=== PATIENT | male | born 1965 | race Caucasian/White ===

== ENCOUNTER 2017-08-07 21:19 | Emergency (ER) | payer MEDICARE, MEDICAID ==
[2017-08-07] MEDS ORDERED: Ketorolac 60 MG/2 ML SDV IM ONE (22:12)
--- NOTE | 2017-08-07 22:17 | EDM.PDOC ---
ED HPI GENERAL MEDICAL PROBLEM - General Chief Complaint: Back Pain or Injury Stated Complaint: BACK PAIN/ALLERGIES Time Seen by Provider: 08/07/17 22:08 - History of Present Illness INITIAL COMMENTS - FREE TEXT/NARRATIVE: HISTORY AND PHYSICAL: History of present illness: The patient is a 52-year-old male who presents with 2 issues he like addressed-- - first he is concerned that he might have an allergy to cats and he has been around cats and he feels itchy but he has no facial swelling no trouble swallowing no wheezing and no discrete rash. He did not try any over-the- counter meds. The second issue is that he has chronic back pain and he has been sleeping on a floor as he has recently moved here and when he got up he felt some discomfort in his back which is typical of his back pain and is not new or different. He did not take any mejs-mgm-xyytscr meds for this discomfort and he has no radiation of the pain to his legs he has no bowel or bladder disturbances and he had no direct trauma or falls. He has no local provider and was not sure where to go to have these issues addressed. The patient says that just sitting he doesn't have any back pain but when he tries to stand up he gets the discomfort and once he is up he feels better. Walking does not aggravate the pain. This is all typical of prior episodes of his chronic back pain. Review of systems: As per history of present illness and below otherwise all systems reviewed and negative. Past medical history: As per history of present illness and as reviewed below otherwise noncontributory. Surgical history: As per history of present illness and as reviewed below otherwise noncontributory. Social history: No reported history of drug or alcohol abuse. Family history: As per history of present illness and as reviewed below otherwise noncontributory. Physical exam: Gen.: Well-developed well-nourished man who moves easily in the ED vital signs are reviewed by me HEENT: Atraumatic, normocephalic, pupils reactive, negative for conjunctival pallor or scleral icterus, mucous membranes moist, throat clear, neck supple, nontender, trachea midline. No oropharyngeal swelling or facial swelling Lungs: Clear to auscultation, breath sounds equal bilaterally, chest nontender. Heart: S1S2, regular, rate and rhythm no overt murmurs Abdomen: Soft, nondistended, nontender. NABSNegative for costovertebral tenderness. Pelvis: Stable nontender. Genitourinary: Deferred. Rectal: Deferred. Extremities: Atraumatic, negative for cords or calf pain. Neurovascular unremarkable. Neuro: Awake, alert, oriented. Cranial nerves II through XII unremarkable. Cerebellum unremarkable. Motor and sensory unremarkable throughout. Exam nonfocal. Neck: There are no midline step-offs tenderness defects of the thoracic or lumbar spine and no posterior rib or pelvis pain Skin: There is no evidence of any rash the right seen on the trunk or upper extremities face or neck or back. Turgor is normal Diagnostics: [] Therapeutics: Toradol Discussed with the patient that we do not do allergy testing here and that if he wanted evaluation for that he would need to be seen in the clinic. Advised [id number]-[id number] Benadryl and Claritin for any allergy symptoms. We have given him a shot of Toradol here on a recommend [id number] anti-inflammatories for his chronic back issues and follow-up in our clinic. We discussed that as he has had no new trauma that x-rays would not be indicated Impression: Subjective allergy symptoms stable, chronic back pain stable Definitive disposition and diagnosis as appropriate pending reevaluation and review of above. Left Back Pain Score (Numeric/FACES): 9 - Related Data Allergies Allergy/AdvReac Type Severity Reaction Status Date / Time Penicillins Allergy Cannot Verified 08/07/17 21:32 Remember Home Meds: Home Meds . [No Known Home Meds] 07/27/14 [History] Past Medical History - Past Health History Medical/Surgical History: Denies Medical/Surgical History HEENT History: Reports: None Cardiovascular History: Reports: None Respiratory History: Reports: None Gastrointestinal History: Reports: None Genitourinary History: Reports: None Musculoskeletal History: Reports: None Neurological History: Reports: None Psychiatric History: Reports: None Endocrine/Metabolic History: Reports: None Hematologic History: Reports: None Immunologic History: Reports: None Oncologic (Cancer) History: Reports: None Dermatologic History: Reports: None - Infectious Disease History Infectious Disease History: Reports: None - Past Surgical History Head Surgeries/Procedures: Reports: None Male Surgical History: Reports: None Social & Family History - Tobacco Use Smoking Status *Q: Former Smoker Years of Tobacco use: 35 Used Tobacco, but Quit: Yes Month Tobacco Last Used: 06/12/17 - Caffeine Use Caffeine Use: Reports: None - Alcohol Use Days Per Week of Alcohol Use: 0 - Recreational Drug Use Recreational Drug Use: No ED ROS GENERAL - Review of Systems Review Of Systems: ROS reveals no pertinent complaints other than HPI. ED EXAM, GENERAL - Physical Exam Exam: See Below (See dictation) Course - Vital Signs Last Recorded V/S: Last Vital Signs Temp 37.1 C 08/07/17 21:29 Pulse 68 08/07/17 21:29 Resp 18 08/07/17 21:29 BP 123/53 L 08/07/17 21:29 Pulse Ox 99 08/07/17 21:29 - Orders/Labs/Meds Orders: Active Orders 24 hr Category Date Time Status Ketorolac [Toradol] Med 08/07/17 22:12 Once 60 mg IM ONETIME ONE Departure - Departure Time of Disposition: 22:15 Disposition: Home, Self-Care 01 Condition: Good Clinical Impression: Chronic back pain Qualifiers: Back pain location: back pain in unspecified location Back pain laterality: unspecified Qualified Code(s): M54.9 - Dorsalgia, unspecified; G89.29 - Other chronic pain; G89.29 - Other chronic pain Allergic symptoms Qualifiers: Encounter type: initial encounter Qualified Code(s): T78.40XA - Allergy, unspecified, initial encounter - Discharge Information Referrals: PCP,None [Primary Care Provider] - Additional Instructions: The following information is given to patients seen in the emergency department who are being discharged to home. This information is to outline your options for follow-up care. We provide all patients seen in our emergency department with a follow-up referral. The need for follow-up, as well as the timing and circumstances, are variable depending upon the specifics of your emergency department visit. If you don't have a primary care physician on staff, we will provide you with a referral. We always advise you to contact your personal physician following an emergency department visit to inform them of the circumstance of the visit and for follow-up with them and/or the need for any referrals to a consulting specialist. The emergency department will also refer you to a specialist when appropriate. This referral assures that you have the opportunity for followup care with a specialist. All of these measure are taken in an effort to provide you with optimal care, which includes your followup. Under all circumstances we always encourage you to contact your private physician who remains a resource for coordinating your care. When calling for followup care, please make the office aware that this follow-up is from your recent emergency room visit. If for any reason you are refused follow-up, please contact the [facility] emergency department at and ask to speak to the emergency department charge nurse. [facility] Primary care- Internal Medicine and Family [address] [address] Use [id number] Claritin/Camryn/Benadryl for any allergy symptoms and please call and follow-up in our clinic for further evaluation of your concerns about cat allergies. Use [id number] Tylenol/ibuprofen for back pain and apply ice or heat to areas for symptoms. Please contact one of our clinic providers for further care of this as well. Return to ER as needed and as discussed - My Orders Last 24 Hours: My Active Orders 08/07/17 22:12 Ketorolac [Toradol] 60 mg IM ONETIME ONE - Assessment/Plan Last 24 Hours: My Active Orders 08/07/17 22:12 Ketorolac [Toradol] 60 mg IM ONETIME ONE
[2017-08-07 23:13] VITALS: BP 131/63
== END 2017-08-07 23:14 | disposition home or self-care (01) ==
LOC: MW.ED 21:19
DX: G89.29 Other chronic pain (principal); M54.9 Dorsalgia, unspecified; T78.40XA Allergy, unspecified, initial encounter; Z88.0 Allergy status to penicillin; Z87.891 Personal history of nicotine dependence
CPT/HCPCS: 96372; 99283; J1885